=== PATIENT | male | born 1955 | race Caucasian/White ===

== ENCOUNTER 2017-09-13 09:53 | Emergency (ER) | payer OTHER ==
[~2017-09-13 09:53] MED LIST: ALBU8I INH; AMLO10 PO; ATOR40TA PO; ECOT81TA2 PO; ENOX80P SQ; MULT-65 PO; QUET25 PO; TIOT1AER; WARF6 PO
[2017-09-13] MEDS ORDERED: EPINEPHrine HCL (1:10,000) 1 MG/10 ML SYRINGE IV ONE (09:54)
--- NOTE | 2017-09-13 10:08 | PD ---
HPI Chief Complaint: CODE BLUE Time Seen by Provider: 10:00 Travel History International Travel<30 days: No Contact w/Intl Traveler<30days: No Traveled to known affect area: No History of Present Illness HPI The patient is a 61-year-old male who presents to the emergency department via EMS as a code. According to EMS the patient told his he is going to take a shower, when she came into the bedroom he was on the floor, nonresponsive. EMS states there was approximately 10 minute window between when the found the patient and when they arrived. EMS arrived and the patient was in cardiac arrest, initial rhythm was asystole. They placed an IO in the left lower extremity and intubated the patient on scene. The patient had 4 mg total of epinephrine, 2 doses of Narcan, 100 mg of bicarbonate, and stated the patient's blood glucose was 91. They state the patient has been in asystole for approximately 30 minutes prior to arrival. Upon arrival the patient was intubated with no pulses. No further information is obtainable from the patient. PFSH Past Medical History Arthritis: Yes Asthma: No Autoimmune Disease: No Anxiety: Yes Heart Rhythm Problems: No Cancer: No Cardiovascular Problems: Yes Chemotherapy: No Congestive Heart Failure: Yes COPD: Yes Cerebrovascular Accident: No Coronary Artery Disease: Yes Diabetes: No Diminished Hearing: Yes Endocrine: No Gastrointestinal Disorders: Yes GERD: Yes Genitourinary: No Hypertension: Yes Immune Disorder: No Implanted Vascular Access Dvce: No Kidney Stones: No Musculoskeletal: Yes Psychiatric: No Reproductive: No Respiratory: Yes Radiation Therapy: No Renal Failure: No Seizures: No (PT DENIES) Sickle Cell Disease: No Sleep Apnea: No Thyroid Disease: No Past Surgical History Abdominal Surgery: No AICD: No Arteriovenous Shunt: No Cardiac Surgery: No Ear Surgery: No Endocrine Surgery: No Eye Surgery: Yes (CATARCTS) Genitourinary Surgery: No Insulin Pump: No Joint Replacement: No Neurologic Surgery: No Oral Surgery: No Pacemaker: No Thoracic Surgery: No Other Surgery: Yes Social History Alcohol Use: Yes (DAILY) Tobacco Use: Yes (2 PPD) Substance Use: Yes ("occasionally a joint") Allergies-Medications (Allergen,Severity, Reaction): Coded Allergies: Sulfa (Sulfonamide Antibiotics) (Unverified Allergy, Unknown, Anaphylaxis , 04/09/17) HISTORICAL CHILD Reported Meds & Prescriptions Reported Meds & Active Scripts Active Coumadin6 M2 6 Mg Tab 6 Mg PO DAILY@16 30 Days Quetiapine Fumarate 25 Mg Tab 25 Mg PO BID 30 Days Lovenox (Enoxaparin Sodium) 80 Mg/0.8 Ml Inj 70 Mg SQ Q12H 7 Days Norvasc (Amlodipine Besylate) 10 Mg Tab 10 Mg PO DAILY 30 Days Ecotrin Low Strength (Aspirin) 81 Mg Tabec 81 Mg PO DAILY 30 Days Reported Stiolto Respimat 2.5-2.5 Mcg/Act (Tiotropium [place]-Olodaterol) 1 Aer Aer Ventolin Hfa (Albuterol Sulfate) 8 Gm Aero 1 Puff INH ONCE * SHAKE WELL BEFORE USE * Atorvastatin 40 mg (Atorvastatin Calcium) 40 Mg Tab 40 Mg PO DAILY Multi-Vitamin Daily (Multivitamins) Daily Tab 1 Tab PO DAILY Review of Systems ROS Limitations: Clinical Condition, Intubated Except as stated in HPI: all other systems reviewed are Neg Physical Exam Exam Limitations: Clinical Condition Narrative GENERAL: Intubated 61-year-old male with his eyes closed, non-responsive. SKIN: Focused skin assessment warm/dry. HEAD: Atraumatic. Normocephalic. EYES: Pupils equal and round. 5 mm bilateral and fixed. ENT: No nasal bleeding or discharge. 7.[address]. NECK: Trachea midline. No JVD. CARDIOVASCULAR: No palpable pulse. RESPIRATORY: Bilateral breath sounds with bag valve ventilation. GASTROINTESTINAL: Abdomen soft, non-tender, nondistended. MUSCULOSKELETAL: No obvious deformities. No clubbing. No cyanosis. No edema. IO in place left lower extremity. NEUROLOGICAL: GCS of 3. Pupils 5 mm bilateral and fixed. PSYCHIATRIC: Unable to obtain. Data Data Orders Orders Ed Discharge Order (09/13/17 10:15) [facility] Medical Decision Making Medical Screen Exam Complete: Yes Emergency Medical Condition: Yes Medical Record Reviewed: Yes Differential Diagnosis Differential diagnosis includes cardiopulmonary arrest, STEMI, pulmonary embolism, hypoglycemia, hypothermia, hypokalemia, hyperkalemia, electrolyte abnormality, intracranial hemorrhage, cardiac, Tension Pneumothorax. Narrative Course Upon arrival the patient was placed on cardiac telemetry monitoring and continuous pulse oximetry monitoring. The patient was noted to be in asystole, compressions were continued and the patient was administered a fifth dose of epinephrine through the IO. After 2 minutes there were no pulses, bedside cardiac ultrasound was performed, the patient had no cardiac activity. The patient's downtime is greater than 30 minutes, the patient has been in asystole , the patient's GCS was 3 and there was no cardiac activity on ultrasound. The patient was pronounced at 9:58 AM. I discussed the patient with the patient's , she states the primary physician is Dr. Rancho Ch. She does state the patient has had a history of alcoholism, previous heart attack, and actually had a previous cardiac arrest while in the hospital. Therefore, a call will be placed to Dr. Rancho Ch to see if he will sign the certificate. Procedures Procedure Narrative A bedside ultrasound was performed using a curvilinear probe, there was no cardiac activity. Diagnosis Primary Impression: Cardiopulmonary arrest Disposition: 20 Condition: Nikolay Fitzgerald MD Sep 13, 2017 10:08
== END 2017-09-13 11:17 | disposition expired ==
LOC: NEPC 09:53
DX: I46.9 Cardiac arrest, cause unspecified (principal); I11.0 Hypertensive heart disease with heart failure; I50.9 Heart failure, unspecified; I25.10 Atherosclerotic heart disease of native coronary artery without angina pectoris; J44.9 Chronic obstructive pulmonary disease, unspecified; K21.9 Gastro-esophageal reflux disease without esophagitis; F41.9 Anxiety disorder, unspecified; F10.20 Alcohol dependence, uncomplicated; F17.200 Nicotine dependence, unspecified, uncomplicated
CPT/HCPCS: 99285; J0171